=== PATIENT | female | born 1940 | race Two or more races ===

== ENCOUNTER 2019-12-27 14:42 | Outpatient (CLI) | payer OTHER | END 2019-12-27 14:48 | disposition home or self-care (01) | LOC: RAD 14:42 | PROVIDERS: ATTEND Orthopaedic Surgery | DX: M19.042 Primary osteoarthritis, left hand (principal); M25.572 Pain in left ankle and joints of left foot; M79.645 Pain in left finger(s) ==

== ENCOUNTER 2020-01-16 07:29 | Outpatient (CLI) | payer OTHER | END 2020-01-16 07:33 | disposition home or self-care (01) | LOC: LAB 07:29 | PROVIDERS: ATTEND Orthopaedic Surgery | DX: E21.2 Other hyperparathyroidism (principal); E88.89 Other specified metabolic disorders; M85.88 Other specified disorders of bone density and structure, other site; E55.9 Vitamin D deficiency, unspecified; E56.1 Deficiency of vitamin K; D50.0 Iron deficiency anemia secondary to blood loss (chronic) ==

== ENCOUNTER 2021-05-02 07:22 | Outpatient (CLI) | payer OTHER | END 2021-05-02 15:00 | disposition home or self-care (01) | LOC: LAB 07:22 | PROVIDERS: ATTEND Orthopaedic Surgery | DX: E55.9 Vitamin D deficiency, unspecified (principal); M85.9 Disorder of bone density and structure, unspecified; E56.1 Deficiency of vitamin K; E21.3 Hyperparathyroidism, unspecified; E88.9 Metabolic disorder, unspecified; M81.8 Other osteoporosis without current pathological fracture; I11.9 Hypertensive heart disease without heart failure; E78.2 Mixed hyperlipidemia; E03.8 Other specified hypothyroidism; D64.9 Anemia, unspecified ==

== ENCOUNTER 2021-05-16 09:00 | Outpatient (CLI) | payer OTHER | END 2021-05-16 09:04 | disposition home or self-care (01) | LOC: RAD 09:00 | PROVIDERS: ATTEND Orthopaedic Surgery | DX: M75.82 Other shoulder lesions, left shoulder (principal) ==

== ENCOUNTER 2021-08-14 12:28 | Outpatient (CLI) | payer OTHER | END 2021-08-14 12:29 | disposition home or self-care (01) | LOC: NUCLEAR 12:28 | PROVIDERS: ATTEND Orthopaedic Surgery | DX: M81.0 Age-related osteoporosis without current pathological fracture (principal) ==

== ENCOUNTER 2022-01-13 14:24 | Outpatient (CLI) | payer OTHER | END 2022-01-13 14:25 | disposition home or self-care (01) | LOC: RAD 14:24 | PROVIDERS: ATTEND Orthopaedic Surgery | DX: M25.572 Pain in left ankle and joints of left foot (principal) ==

== ENCOUNTER 2023-11-01 10:29 | Outpatient (CLI) | payer OTHER | END 2023-11-01 10:38 | disposition home or self-care (01) | LOC: MRI 10:29 | PROVIDERS: ATTEND Orthopaedic Surgery | DX: M51.37 Other intervertebral disc degeneration, lumbosacral region (principal) | CPT/HCPCS: 72148 ==

== ENCOUNTER → 2024-01-26 | Outpatient (CLI) | payer OTHER | END | disposition home or self-care (01) | LOC: MRI 11:30 | PROVIDERS: ATTEND Orthopaedic Surgery | DX: M76.01 Gluteal tendinitis, right hip (principal) | CPT/HCPCS: 73718 ==

== ENCOUNTER 2024-11-05 09:27 | Outpatient (CLI) | payer OTHER | END 2024-11-05 09:28 | disposition home or self-care (01) | LOC: NUCLEAR 09:27 | PROVIDERS: ATTEND Orthopaedic Surgery | DX: M81.0 Age-related osteoporosis without current pathological fracture (principal) ==

== ENCOUNTER 2024-11-16 08:11 | Outpatient (CLI) | payer OTHER ==
[2024-11-16 10:10] LABS: ALT/SGPT 36.0 U/L (12-78); AST/SGOT 32.0 U/L (15-37); BILIRUBIN TOTAL 0.52 mg/dL (0.3-1.2); BUN CREA RATIO 39.0 (7.0-25.0); CREATININE SERUM 0.75 mg/dL (0.55-1.02); GFR 73.98; GLOBULINA 3.2 G/DL (2.4-3.5); GLUCOSE FASTING 102.0 mg/dL (65-100); OSMOLALITY SERUM 289.0 MOSM/KG (275-295)
[2024-11-17 13:11] LABS: CALCIUM IONIZED 5.2 mg/dL (4.5-5.6)
== END 2024-11-16 08:17 | disposition home or self-care (01) ==
LOC: LAB 08:11
PROVIDERS: ATTEND Orthopaedic Surgery
DX: E55.9 Vitamin D deficiency, unspecified (principal); M85.9 Disorder of bone density and structure, unspecified; E56.1 Deficiency of vitamin K; E21.3 Hyperparathyroidism, unspecified; E88.89 Other specified metabolic disorders; M81.8 Other osteoporosis without current pathological fracture